=== PATIENT | female | born 1960 | race Caucasian/White ===

== ENCOUNTER 2016-11-07 08:46 | Outpatient (CLI) | payer OTHER ==
--- NOTE | 2016-11-07 10:35 | ULT ---
GALLBLADDER ULTRASOUND: Indication: Right upper quadrant pain for two weeks. Comparison: None. FINDINGS: There are areas of increased echogenicity of the hepatic parenchyma. This could be on the basis of h epatic steatosis. There is no abnormal gallbladder wall thickening. Phillips's sign is reported as pos itive. Common duct is normal in diameter at 1 mm. No ascites. IMPRESSION: 1. Mild areas of increased echogenicity of the hepatic parenchyma could relate to hepatic steatosis and may be further assessed with dedicated liver function enzymes. 2. No shadowing cholelithiasis or gallbladder wall thickening. Phillips's sign is reported as positive . Recommend clinical correlation in this regard. POS: [facility]
== END 2016-11-07 08:47 | disposition home or self-care (01) ==
LOC: MADULT 08:46
PROVIDERS: ATTEND Family Medicine
DX: R10.11 Right upper quadrant pain (principal); K76.0 Fatty (change of) liver, not elsewhere classified
CPT/HCPCS: 76705

== ENCOUNTER 2019-11-13 12:52 | Outpatient (CLI) | payer OTHER ==
--- NOTE | 2019-11-13 13:17 | RAD ---
EXAM: XR Ribs Lt>=2 View STANDARD PROVIDED CLINICAL HISTORY: Left rib pain after a fall one day ago. COMPARISON: Chest x-ray on 10/01/2015. FINDINGS: Left lung is clear without pneumothorax or pleural effusion. There are nondisplaced fractures involvi ng the lateral left ninth and 10th ribs. There is mild S-shaped curvature of thoracolumbar spine. IMPRESSION: Nondisplaced fractures left lateral ninth and 10th ribs.
== END 2019-11-13 12:53 | disposition home or self-care (01) ==
LOC: MADRAD 12:52
PROVIDERS: ATTEND Family Medicine
DX: R07.81 Pleurodynia (principal); S22.42XA Multiple fractures of ribs, left side, initial encounter for closed fracture

== ENCOUNTER 2020-07-27 17:17 | Outpatient (CLI) | payer OTHER | END 2020-07-27 17:18 | disposition home or self-care (01) | LOC: MADLAB 17:17 | PROVIDERS: ATTEND Family Medicine | DX: Z01.419 Encounter for gynecological examination (general) (routine) without abnormal findings (principal) | CPT/HCPCS: 88142; G0123 ==

== ENCOUNTER 2021-09-28 17:26 | Outpatient (CLI) | payer BC ==
[2021-09-28 18:24] LABS: #Basophils 0.1 thou/uL (0.0-0.2); #Eosinphils 0.1 thou/uL (0.0-0.7); #Lymphocytes 2.7 thou/uL (1.20-3.40); #Monocytes 0.5 thou/uL (0.11-0.59); #Neutrophils 3.6 thou/uL (1.40-6.50); %Basophils 1.3 % (0.0-1.0); %Eosinophils 1.6 % (0.0-10.0); %Lymphocytes 38.9 % (21.0-51.0); %Monocytes 7.3 % (0.0-10.0); %Neutrophils 50.9 % (42.0-75.0); Hemoglobin 13.7 g/dL (12.0-16.0); Mean Corpuscular HGB CONC 31.2 g/dL (32.0-36.0); Mean Corpuscular Hemoglobin 32.4 pg (27.0-31.0); Mean Corpuscular Volume 103.8 fL (78.0-98.0); Mean Platelet Volume 9.1 fL (7.4-10.4); Platelet Count 255 thou/uL (130-400); RBC Distribution Width 12.1 % (11.5-14.5); Red Blood Cell (RBC) Count 4.22 mill/uL (4.20-5.40)
[2021-09-28 18:39] LABS: ALT (SGPT) 10 U/L (8-55); AST (SGOT) 18 U/L (5-34); Albumin 4.4 g/dL (3.4-4.8); Alkaline Phosphatase 75 U/L (40-110); Anion Gap 13 mmol/L (10-20); BUN (Urea Nitrogen) 12 mg/dL (9.8-20.1); Bilirubin, Total 0.5 mg/dL (0.2-1.2); Calc. Creatinine Clearance 0 mL/min (70-130); Calcium 9.6 mg/dL (7.8-10.44); Carbon Dioxide 28 mmol/L (23-31); Chloride 100 mmol/L (98-107); Estimated GFR 85; Globulin 2.9 g/dL (2.4-3.5); Glucose 96 mg/dL (80-115); Potassium 4.5 mmol/L (3.5-5.1); Protein, Total 7.3 g/dL (5.8-8.1); Sodium 136 mmol/L (136-145)
[2021-09-28 19:14] LABS: Thyroid Stimulating Hormone 0.6269 uIU/mL (0.35-4.94)
[2021-09-29 12:04] LABS: Free T4 (Free Thyroxine) 0.95 ng/dL (0.70-1.48)
== END 2021-09-28 17:27 | disposition home or self-care (01) ==
LOC: MADLAB 17:26
PROVIDERS: ATTEND Family Medicine
DX: R00.0 Tachycardia, unspecified (principal)
CPT/HCPCS: 36415; 80053; 84439; 84443; 84481; 85025; 93005; 93010

== ENCOUNTER 2021-10-05 16:19 | Outpatient (CLI) | payer BC ==
[2021-10-06 01:07] LABS: HIV (1/2) Antibody/Antigen Non-Reactive (NonReactive); Vitamin D, 25 Hydroxy 45.9 ng/ml (> 30.0)
== END 2021-10-05 16:20 | disposition home or self-care (01) ==
LOC: MADLABSP 16:19
PROVIDERS: ATTEND Family Medicine
DX: Z01.419 Encounter for gynecological examination (general) (routine) without abnormal findings (principal); Z11.4 Encounter for screening for human immunodeficiency virus [HIV]; Z78.0 Asymptomatic menopausal state
CPT/HCPCS: 82306; 87389; 88175